=== PATIENT | female | born 1995 | race Caucasian/White ===

== ENCOUNTER 2016-11-03 22:19 | Emergency (ER) | payer OTHER | END 2016-11-04 00:29 | disposition home or self-care (01) | LOC: ER 22:19 | DX: O26.893 Other specified pregnancy related conditions, third trimester (principal); M79.89 Other specified soft tissue disorders; Z3A.28 28 weeks gestation of pregnancy; O23.43 Unspecified infection of urinary tract in pregnancy, third trimester; M25.572 Pain in left ankle and joints of left foot | CPT/HCPCS: 36415; 80053; 81001; 84703; 85025; 87088 ==